=== PATIENT | male | born 1970 | race Two or more races ===

== ENCOUNTER 2020-02-20 01:49 | Emergency (ER) | payer SELFPAY ==
--- NOTE | 2020-02-20 01:57 | NUR ---
called pt in wr x3. no one responded.
--- NOTE | 2020-02-20 02:08 | NUR ---
attempt #2. called pt in wr. no one responded. will follow up.
--- NOTE | 2020-02-20 02:18 | NUR ---
attempt #3 called pt in wr. no one responded.
--- NOTE | 2020-02-20 02:39 | NUR ---
attempt #4 called pt in wr. no one responded. per admitting pt never came back after stepping out.
== END 2020-02-20 02:41 | disposition left against medical advice (07) ==
LOC: ER 01:53
DX: Z53.21 Procedure and treatment not carried out due to patient leaving prior to being seen by health care provider (principal)